=== PATIENT | female | born 1985 | race African-American/Black ===

== ENCOUNTER 2019-06-10 23:26 | Emergency (ER) | payer OTHER ==
[~2019-06-10] VITALS: Ht 172.7 cm; Wt 119.8 kg
[2019-06-10 23:32] VITALS: BP 145/97
[2019-06-10] MEDS ORDERED: PROPARACAINE OPHTH 0.5%, 15ML ONE (23:41)
[2019-06-10] MEDS ORDERED: FLUORESCEIN OPHTHALMIC 1 MG STRIP ONE ×2 (23:41→23:53)
== END 2019-06-11 00:25 | disposition home or self-care (01) ==
LOC: ED 06-11 00:23
DX: H18.823 Corneal disorder due to contact lens, bilateral (principal); H57.13 Ocular pain, bilateral
CPT/HCPCS: 99283